=== PATIENT | male | born 1970 | race Caucasian/White ===

== ENCOUNTER 2019-03-30 13:41 | Inpatient (IN) | payer SELFPAY ==
[~2019-03-30] VITALS: Ht 182.9 cm; Wt 85.7 kg
[2019-03-30] MEDS ORDERED: ONDANSETRON HCL 4MG/2ML INJ IV STA (14:27)
[2019-03-30] MEDS ORDERED: MORPHINE SULFATE 4 MG/ML CPJ (NOT FOR IM USE) IV STA (14:27)
[2019-03-30] MEDS ORDERED: SODIUM CHLORIDE 0.9% 1,000 ML IV ONE (14:27)
[2019-03-30 14:50] LABS: BASOPHILS % 0.6 % (0.0-2.0); EOSINOPHILS % 2.8 % (0.0-5.0); HEMATOCRIT. 47.4 % (42.0-52.0); HEMOGLOBIN. 16.1 g/dL (14.0-18.0); MEAN CORPUSCULAR HEMOGLOBIN 31.8 pg (28.0-32.0); MEAN CORPUSCULAR VOLUME 93.4 fL (80.0-94.0); MEAN PLATELET VOLUME 10.4 fl (7.4-10.4); MONOCYTES % 11.2 % (2.0-8.0); NEUTROPHILS % 60.4 % (40.0-76.0); PLATELET 180 x1000/uL (130-400); RED BLOOD CELL COUNT 5.07 mill/uL (4.7-6.1); RED CELL DISTRIBUTION WIDTH 13.8 % (11.6-14.6)
[2019-03-30 14:55] LABS: CHLORIDE 108 mEq/L (98-107)
[2019-03-30 14:57] LABS: PARTIAL THROMBOPLASTIN TIME 27.2 sec (23.4-31.0); PROTHROMBIN TIME 10.3 sec (9.6-11.0)
[2019-03-30 14:59] LABS: ETHANOL BLOOD < 10 mg/dL
[2019-03-30] MEDS ORDERED: KCL 10MEQ/50ML PREMIX 50 ML IV ONE (15:30)
[2019-03-30 17:38] LABS: *COCAINE SCREEN URINE NEGATIVE (NEGATIVE); METHADONE URINE SCREEN NEGATIVE (NEGATIVE); OPIATES URINE SCREEN PRESUMTIVE POSITIVE (NEGATIVE); PHENCYCLIDINE URINE SCREEN NEGATIVE (NEGATIVE)
[2019-03-30 17:39] LABS: *AMPHETAMINES SCREEN URINE PRESUMTIVE POSITIVE (NEGATIVE); *BARBITURATES SCREEN URINE NEGATIVE (NEGATIVE); *BENZODIAZEPINES SCREEN URINE NEGATIVE (NEGATIVE); CANNABINOID URINE SCREEN NEGATIVE (NEGATIVE)
[2019-03-30] MEDS ORDERED: MAGNESIUM/ALUMINUM HYDROXIDE/SIMETHICONE 30ML UDC PO PRN (19:15)
[2019-03-30] MEDS ORDERED: GUAIFENESIN 200MG/10ML SUGAR FREE UDC PO PRN (19:15)
[2019-03-30] MEDS ORDERED: LORAZEPAM 0.5MG TABLET PO PRN (19:15)
[2019-03-30] MEDS ORDERED: ZOLPIDEM TARTRATE 5MG TABLET PO PRN (19:15)
[2019-03-30] MEDS ORDERED: CLONIDINE 0.1MG TABLET PO PRN (19:15)
[2019-03-30] MEDS ORDERED: ACETAMINOPHEN 325MG TABLET PO PRN (19:15)
[2019-03-30] MEDS ORDERED: NITROGLYCERIN 0.4MG TABLET SL SL PRN (19:15)
[2019-03-30] MEDS ORDERED: ONDANSETRON HCL 4MG/2ML INJ IV PRN (19:15)
[2019-03-30] MEDS ORDERED: DOCUSATE SODIUM 100MG CAPSULE PO PRN (19:15)
[2019-03-30] MEDS ORDERED: IPRATROPIUM/ALBUTEROL 0.5-3(2.5)MG/3ML NEB NEB PRN (19:15)
[2019-03-30] MEDS ORDERED: KETOROLAC 15MG/ML VIAL IV PRN (19:15)
[2019-03-30 22:05] VITALS: BP 133/77
[2019-03-30] MEDS: FAMOTIDINE 20MG TABLET PO SCH (22:53)
[2019-03-30] MEDS: ENOXAPARIN 30MG/0.3ML SYR SUBCUT SCH (22:55)
[2019-03-30 23:26] VITALS: BP 133/77
[2019-03-31] VITALS: BP 136/89
[2019-03-31 04:00] VITALS: BP 120/81
[2019-03-31 06:54] LABS: CHLORIDE 106 mEq/L (98-107)
[2019-03-31 08:00] VITALS: BP 134/88
[2019-03-31] MEDS: FAMOTIDINE 20MG TABLET PO SCH (08:41)
[2019-03-31] MEDS: ENOXAPARIN 30MG/0.3ML SYR SUBCUT SCH (08:41)
== END 2019-03-31 09:37 | disposition left against medical advice (07) | DRG 57 ==
LOC: ER 13:41 → 6WST 17:37 → ENRESERV 20:51
PROVIDERS: ADMIT Internal Medicine; ATTEND Internal Medicine
DX: S06.0X0A Concussion without loss of consciousness, initial encounter (principal); E87.6 Hypokalemia; R73.03 Prediabetes; Y93.01 Activity, walking, marching and hiking; F15.10 Other stimulant abuse, uncomplicated; Z53.29 Procedure and treatment not carried out because of patient's decision for other reasons; W21.05XA Struck by basketball, initial encounter; Y92.89 Other specified places as the place of occurrence of the external cause; Y99.8 Other external cause status
CPT/HCPCS: 36415; 71045; 80305; 80320; 86850; 86900; 93005; 93970; 96365; 96375; 99285; J1650; J1885; J2270; J2405; J3480; J7030; G0480